=== PATIENT | male | born 1955 | race Caucasian/White ===

== ENCOUNTER → 2016-05-26 | Outpatient (CLI) | payer OTHER ==
[~2016-05-26] MED LIST: ALBUTEROL MININEB NEB; ALPRAZOLAM PO; AMLODIPINE-BENA1 CA3 PO; ASPIRIN PO; ASPIRIN81 M2 PO; FISH OIL 1,0001 CAP PO; GLIMEPIRIDE2 MG PO; GLUCOPHAGE500 M1 PO; GLYBURIDE PO; HYDROCODON-ACE1 EAC5 PO; INSULIN FLEX; JANUVIA PO; JARDIANCE10 MG PO; LEVAQUIN750 MG PO; LOTREL PO; LOVAZA1 G PO; METFORMIN HCL500 M1 PO; METOPROLOL TAR25 MG PO; NEBULIZER1 KI1 MC; NORCO 10-325 TA1 TAB PO; NORVASC PO; OMEGA 3 FISH OI1 CAP PO; PREDNISONE10 MG/DOSE PO; SERTRALINE HCL50 MG PO; VITAMIN E400 UNI2 PO; [UNRECOGNIZED DRUG - SUPPLY]
--- NOTE | ~2016-05-26 | CT57 ---
[facility]. [facility] A Service of [facility] & [facility] RADIOLOGY TEXT RESULTS PATIENT: CAITLIN DARBY [facility] UNIT #: [id number] AGE: [address]: Richard Mix MD SEX: M ORDER DR: [id number] [facility] [address] [place], [place] [address] [id number] O MR#: [id number] [facility] #: [id number] NAME: CAITLIN DARBY : 1955 SEX: M STUDY DATE/TIME: 05/26/2016 11:00 UNIT: [facility] ROOM: STUDY DESCRIPTION: CT Chest Wo Cont Attending Physician: Richard Mix M.D. Ordering Physician: Richard Mix M.D. Primary Care Physician: Nicola Mccollum Jr., M.D. MEDICAL IMAGING REPORT This report is preliminary unless electronic signature is present EXAM CT chest without contrast DATE 05/26/2016 HISTORY Lung cancer. History of right upper lobe lung resection. Follow up pulmonary nodule. Patient states no current complaints. Additional history of COPD, hypertension, and diabetes. COMPARISON CT chest without contrast 01/01/2016. PROCEDURE 2 mm axial images from the thoracic inlet through the upper abdomen without IV contrast. Sagittal and coronal reformatted images were obtained. This CT exam was performed with one or more of the following radiation dose reduction techniques: automatic exposure control, adjustment of mA and/or kV according to patient size, and iterative reconstruction. FINDINGS The study is attenuated secondary to the patient's body habitus. Surgical changes of right upper lobe lung resection are again identified. There is chronic-appearing scarring in the anterior lingular segment of the left upper lobe. Chronic-appearing reticular interstitial thickening in the right lower lobe, unchanged. No suspicious pulmonary nodules are identified on today's examination. 1 mildly prominent node adjacent to the left main pulmonary artery today measures 1.6 x 0.9 cm, slightly smaller than on 01/01/2016 where it measured 1.9 x 1.1 cm. On today's examination, it appears to have some central calcification, and is most in keeping with a benign etiology such as granulomatous disease. Other STS. [facility] A Service of [facility] & [facility] RADIOLOGY TEXT RESULTS PATIENT: CAITLIN DARBY LOCATION: [facility] : 51 UNIT #: [id number] AGE: [address]: Richard Mix MD SEX: M ORDER DR: mediastinal lymph nodes are stable, and they are not pathologically enlarged by CT criteria. No pericardial effusion. No pleural effusion. Coronary calcifications. Normal heart size. Previously described low-density lesions in the caudate lobe are not satisfactorily visualized today, as the upper abdomen is quite attenuated due to the patient's body habitus. There is a lesion projecting exophytically from the right ame-py-vfmrh renal pole laterally measuring about 2.8 cm, and another lesion projecting medially from the left upper renal pole measuring about 2.8 cm, each of which appears unchanged compared to 06/03/2014, in keeping with a benign finding such as cysts. IMPRESSION 1. No evidence of recurrent or metastatic disease in the chest in this patient with the previous history of lung cancer. Partial right lung resection changes. 2. Bilateral renal cysts. 3. Small nonobstructing right renal calculus, not included in the body of the report. 4. Dense coronary artery calcifications. Please correlate with cardiac history. 5. Previously described ill-defined low-density lesions in the caudate lobe are not evident on this examination, it may be attenuated by beam-hardening artifact related to patient body habitus. Dictated by... Julianna Slade M.D. THIS IS AN ELECTRONICALLY VERIFIED REPORT Julianna Slade M.D. at 05/27/2016 10:06 PM CRISTAL/tanesha TD: 05/26/2016 13:14 JOB #: [id number] MEDICAL IMAGING REPORT COPY
== END | disposition home or self-care (01) ==
LOC: CCAT 09:46
DX: R91.1 Solitary pulmonary nodule (principal); N28.1 Cyst of kidney, acquired; N20.0 Calculus of kidney; I25.10 Atherosclerotic heart disease of native coronary artery without angina pectoris; Z90.2 Acquired absence of lung [part of]; Z85.118 Personal history of other malignant neoplasm of bronchus and lung
CPT/HCPCS: 71250